=== PATIENT | female | born 1935 | race Caucasian/White ===

== ENCOUNTER 2021-04-07 20:32 | Emergency (ER) | payer MEDICARE, OTHER ==
[2021-04-07] MEDS ORDERED: Sodium Chloride 0.9% 1000 ML 1,000 ML IV STA (21:21)
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
[2021-04-07 21:59] LABS: Absolute Neutrophil Ct (ANC) 14.06 (1.4-6.9); BASOPHIL % 0.2 % (0.0-0.4); Basophil (Absolute #) 0.03 (0-0.4); Eosinophil % 0.1 % (0.00-5.0); Eosinophil (Absolute #) 0.01 (0-0.5); Hematocrit 40.8 % (35-47); Hemoglobin 13.1 gm/dl (12.0-16.0); Lymphocyte (Absolute #) 1.05 (1.0-4.6); Lymphocytes % 6.4 % (24.0-44.0); Mean Cell Volume 99.5 fl (78-100); Mean Corpuscular Hgb Concent. 32.1 g/dl (32-36); Monocyte (Absolute #) 1.28 (0.0-1.3); Monocytes % 7.8 % (0.0-12.0); Neutrophil % 85.5 % (36.0-66.0); Platelet Count 305 K/mm3 (150-450); Red Cell Distribution Width 14.6 % (11.5-14.0); White Blood Count 16.4 K/mm3 (4.0-10.5)
[2021-04-07 22:06] LABS: INR 3.42 (0.8-3.0); PROTIME 40.4 SECONDS (9.4-12.5)
[2021-04-07] MEDS ORDERED: Sodium Chloride 0.9% 1000 ML 1,000 ML ONE (22:07)
[2021-04-07 22:08] LABS: PTT 40.2 SECONDS (25.1-36.5)
[2021-04-07 22:39] LABS: ALBUMIN 3.8 g/dL (3.5-5.0); ANION GAP 8.9 MEQ/L (5-15); BILIRUBIN,TOTAL 0.4 mg/dL (0.2-1.3); Calcium 9.4 mg/dL (8.4-10.2); Creatinine 1 1.03 mg/dL (0.52-1.04); EST GLOMERULAR FILTRATION RATE 54.1 ML/MIN; Potassium 4.3 mmol/L (3.5-5.1); Total Protein 6.6 g/dL (6.3-8.2)
[2021-04-08 01:34] LABS: Appearance SLIGHTLY CLOUDY (CLEAR); Bilirubin NEGATIVE (NEGATIVE); Blood NEGATIVE Ery/ul (0-5); Epithelial Cells RARE /HPF (FEW); Glucose NEGATIVE (NEGATIVE); Ketones NEGATIVE (NEGATIVE); Leukocyte Esterase TRACE (NEGATIVE); Mucus SLIGHT /HPF (NEGATIVE); Nitrite NEGATIVE (NEGATIVE); Protein,Urine Dip NEGATIVE (Negative); Specific Gravity 1.017 (1.005-1.025); Urobilinogen NEGATIVE mg/dL (0-1)
[2021-04-08 01:42] LABS: Hematocrit 33.4 % (35-47); Hemoglobin 10.8 gm/dl (12.0-16.0)
[2021-04-08] MEDS ORDERED: Sodium Chloride 0.9% 1000 ML 1,000 ML IV STA (01:50)
[2021-04-08] MEDS ORDERED: Sodium Chloride 0.9% 1000 ML 1,000 ML ONE (01:54)
[2021-04-08] MEDS ORDERED: Vitamin K 10 MG/ML IM ONE (02:12)
[2021-04-08 02:13] LABS: ABO TYPING A; Antibody Screen NEGATIVE (NEGATIVE); RH TYPING POSITIVE
[2021-04-08] MEDS ORDERED: Vitamin K 10 MG/ML ONE (02:43)
[2021-04-08 03:22] VITALS: BP 163/71; PULSE 64; O2SAT 99
[2021-04-08 04:37] LABS: CROSS MATCH (PRBC) COMPATIBLE (COMPATIBLE)
--- NOTE | 2021-04-08 08:53 | XRAY ---
Exam: Two-view left hip including AP film of the pelvis from 04/07/2021. Comparison: None. Indication: Elderly female fell at 7 AM this morning; patient having pain and swelling of left hip; patient takes blood thinners and has large hematoma on left hip from fall; patient has been walking on it. Findings: AP film of the pelvis including both hips and AP and frog-leg lateral views of the left hip were obtained. I see no acute fracture or dislocation of the left hip. The hip joint spaces appears slightly narrowed, right greater than left. Some vascular calcification is seen within the iliac arteries and femoral arteries. Some calcified phleboliths are seen within the lower pelvis on each side of midline. Subtle soft tissue calcifications are seen adjacent to the superior lateral margin of the greater trochanter of each hip and may relate to hydroxyapatite deposition disease, or chronic bursitis. The pubic rings appear intact. I see no evidence of acute fracture within the pelvis. Moderate degenerative changes are seen within the visualized lower lumbar spine. The visualized bowel gas pattern is unremarkable. There is ill-defined increased soft tissue prominence located superior lateral and lateral to the left hip. Correlate clinically regarding left hip contusion/hematoma. Impression: 1. I note a relatively large area of ill-defined increased soft tissue attenuation superior lateral and lateral to the proximal left femur which may relate to soft tissue contusion/hematoma. No underlying acute fracture or dislocation of the left hip is seen. No fracture of the pelvis is seen as well. 2. Chronic degenerative changes and vascular calcification are seen.
--- NOTE | 2021-04-08 15:02 | XRAY ---
Exam: CT of the abdomen and pelvis with IV contrast from 04/08/2021. CTDI: 11.56 mGy Comparison: None. Indication: 85-year-old female with injury/trauma; injury date on 04/07/2021. Patient states lateral left hip is swollen and painful. Patient is on blood thinners; history of prior hysterectomy and cholecystectomy; clinical concern for active bleeding. Technique: Post-IV contrast axial images were obtained through the abdomen and pelvis during automated injection of 80 ML's of Isovue 370 contrast material. No oral contrast was given. Reconstructed coronal and sagittal images were created and reviewed. In addition, delayed axial images were obtained. Findings: The lung bases reveal minimal linear scarring/atelectasis at the left lung base. The heart size is slightly enlarged. No pleural effusion is seen. The liver is of unremarkable size and uniform attenuation. Surgical clips consistent with prior cholecystectomy are seen. There is some prominence of the extrahepatic bile ducts, likely due to the be due to patient's advanced age and prior cholecystectomy. The spleen appears relatively small. There is no splenic mass. No free intraperitoneal fluid is seen within either outer quadrant. The pancreas and adrenal glands appear unremarkable. Both kidneys function on delayed images. Some bilateral renal cortical cysts are seen, the largest on the left measuring 4.1 cm in diameter. No solid renal mass or hydronephrosis is seen. Atherosclerotic calcification is seen within the abdominal aorta, iliac arteries, and common femoral arteries. I see no evidence of aortic aneurysm or abnormal retroperitoneal lymphadenopathy. No free intraperitoneal air is seen. Small supraumbilical fat-containing hernia is seen. No ventral wall bowel containing hernia is seen. The bowel appears of unremarkable diameter. No wall thickening is seen. Some scattered small colonic diverticula are seen. There is no evidence of acute diverticulitis. The uterus is surgically absent. Urinary bladder is only mildly distended, but is otherwise unremarkable. No abnormal pelvic lymphadenopathy or free intraperitoneal fluid is seen. I note some stippled calcification at the upper left margin of the vaginal cuff. The pelvic sidewalls appear unremarkable. The skeleton reveals no acute fracture or aggressive bone lesion/bone destruction. There is a minimal rotary levoscoliosis centered at L1. Advanced facet osteoarthritic changes are seen within the mid and lower lumbar spine. Vertebral endplate spurring is evident as well. The soft tissues reveal a large, irregular soft tissue mass posterior lateral to the left hip measuring 13.7 cm in craniocaudal dimension and 11.6 cm in width on coronal image number 92 and about 6.3 cm in AP dimension on delay axial image #86. This soft tissue mass contains varying low attenuation and slightly hyperattenuated components within it. In addition, there is some vascular contrast extravasation at its lower anterior margin and lower central aspect consistent with active bleeding. Surrounding increased ill-defined soft tissue attenuation within the lower left flank, left buttock, and proximal left high is seen consistent with contusion. Impression: 1. 11.6 cm x 13.7 cm x 6.3 cm hematoma noted adjacent to the posterior lateral left hip, left buttock, and proximal left thigh with vascular contrast extravasation indicating active bleeding. 2. Surrounding the hematoma is a larger area of ill-defined lower left flank, left buttock, posterior lateral left hip, and proximal left thigh soft tissue contusion. 3. There is no evidence of traumatic visceral injury within the abdomen or pelvis. I see no evidence of acute skeletal fracture. Degenerative changes are evident. 4. Evidence of prior cholecystectomy and hysterectomy. 5. Mild diffuse colonic diverticulosis without evidence of diverticulitis. 6. Slight cardiomegaly, renal cortical cysts, and small fat-containing supraumbilical hernia are seen.
== END 2021-04-08 03:55 | disposition short-term general hospital (02) ==
LOC: ED 20:32
DX: S70.02XA Contusion of left hip, initial encounter (principal); R79.1 Abnormal coagulation profile; D72.829 Elevated white blood cell count, unspecified; E87.1 Hypo-osmolality and hyponatremia; R42 Dizziness and giddiness; M25.552 Pain in left hip; M25.522 Pain in left elbow; Z79.01 Long term (current) use of anticoagulants; I48.91 Unspecified atrial fibrillation; Z79.899 Other long term (current) drug therapy; I10 Essential (primary) hypertension; E78.00 Pure hypercholesterolemia, unspecified
CPT/HCPCS: 36415; 73502; 74177; 80053; 81001; 84484; 85014; 85018; 85025; 85610; 85730; 86850; 86900; 86901; 86922; 93005; 93041; 94760; 96360; 96372; 99285; U0003; J3430

== ENCOUNTER 2023-01-19 17:04 | Observation (INO) | payer MEDICARE, OTHER ==
[2023-01-19 17:32] LABS: Absolute Neutrophil Ct (ANC) 6.79 x10^3/uL (1.4-6.9); BASOPHIL % 0.7 % (0.0-0.4); Basophil (Absolute #) 0.07 x10^3/uL (0-0.4); Eosinophil % 1.5 % (0.00-5.0); Eosinophil (Absolute #) 0.15 x10^3/uL (0-0.5); Hematocrit 43.5 % (35-47); Hemoglobin 14.5 g/dL (12.0-16.0); IMMATURE GRAN # 0.02 x10^3u/L (0.00-0.03); IMMATURE GRAN % 0.2 % (0.00-0.4); Lymphocyte (Absolute #) 2.08 x10^3/uL (1.0-4.6); Lymphocytes % 21.1 % (24.0-44.0); Mean Cell Volume 94.8 fL (78-100); Mean Corpuscular Hemoglobin 31.6 pg (26-32); Mean Corpuscular Hgb Concent. 33.3 g/dL (32-36); Mean Platelet Volume 9.4 fL (7.5-11.0); Monocyte (Absolute #) 0.75 x10^3/uL (0.0-1.3); Monocytes % 7.6 % (0.0-12.0); Neutrophil % 68.9 % (36.0-66.0); Platelet Count 367 x10^3/uL (150-450); Red Blood Count 4.59 x10^6/uL (4.1-5.4); Red Cell Distribution Width 13.7 % (11.5-14.0); White Blood Count 9.9 x10^3/uL (4.0-10.5)
[2023-01-19 17:44] LABS: ALBUMIN 4.3 g/dL (3.5-5.0); BILIRUBIN,TOTAL 0.6 mg/dL (0.2-1.3); Calcium 9.4 mg/dL (8.4-10.2); Creatinine 1 0.96 mg/dL (0.52-1.04); EST GLOMERULAR FILTRATION RATE 58.4 ML/MIN; Potassium 3.7 mmol/L (3.5-5.1); Total Protein 7.9 g/dL (6.3-8.2)
[2023-01-19] MEDS ORDERED: BABY ASPIRIN 81 MG CHEW PO ONE (17:56)
[2023-01-19] MEDS ORDERED: BABY ASPIRIN 81 MG CHEW ONE (18:05)
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
[2023-01-19 18:07] LABS: INFLUENZA A NEGATIVE (NEGATIVE); INFLUENZA B NEGATIVE (NEGATIVE); RESPIRATORY SYNCTIAL VIRUS NEGATIVE (NEGATIVE); SARS-CoV-2 Xpert Express NEGATIVE (NEGATIVE)
[2023-01-19 18:29] LABS: INR 2.25 (0.8-3.0); PROTIME 23.1 SECONDS (9.4-12.5); PTT 39.9 SECONDS (25.1-36.5)
[2023-01-19] MEDS ORDERED: MILK OF MAGNESIA 30 ML PO PRN (19:52)
[2023-01-19] MEDS ORDERED: MAALOX ES 30 ML UNIT DOSE PO PRN (19:52)
[2023-01-19] MEDS ORDERED: Senokot-S Tablet PO PRN (19:52)
[2023-01-19] MEDS ORDERED: TYLENOL 325 MG PO PRN (19:52)
[2023-01-19] MEDS ORDERED: Zofran 4 MG/2 ML VIAL IV PRN (19:52)
[2023-01-19] MEDS ORDERED: CLONIDINE 0.1 MG TABLET PO ONE (22:28)
[2023-01-19] MEDS ORDERED: Zestril 20 MG PO ONE (22:29)
[2023-01-19] MEDS ORDERED: Ativan 0.5 MG PO ONE (22:29)
[2023-01-20 05:34] LABS: Risk Ratio 3.2
--- NOTE | 2023-01-20 08:41 | XRAY ---
Indication: Chest pain. Comparison: October 22, 2021 Portable apical lordotic chest demonstrates new minimal left base discoid atelectasis/scarring. Remaining heart and lungs unremarkable. Bony thorax intact again with osteopenia, degenerative changes, minimal double curvature scoliosis, and numerous left neck/left shoulder metallic shrapnel. Impression: Nonacute chest with chronic features.
[2023-01-20] MEDS ORDERED: Sodium Chloride 0.9% 250 ML 250 ML IV SCH (09:15)
[2023-01-20] MEDS ORDERED: Ativan 0.5 MG PO PRN (10:25)
[2023-01-20] MEDS ORDERED: [UNRECOGNIZED DRUG - OTHER] TP PRN (10:25)
[2023-01-20] MEDS ORDERED: BENTYL 20 MG PO PRN (10:25)
[2023-01-20] MEDS ORDERED: CLONIDINE 0.1 MG TABLET PO PRN (10:25)
[2023-01-20] MEDS ORDERED: NON-FORMULARY ITEM (Warfarin Sodium [Warfarin Sodium] 2.5 MG Tablet) PO SCH (10:30)
[2023-01-20] MEDS ORDERED: TYLENOL 325 MG PO PRN (10:30)
[2023-01-20] MEDS ORDERED: FISH OIL 1,000 MG CAPSULE PO SCH (11:00)
[2023-01-20] MEDS ORDERED: Zestril 20 MG PO SCH ×3 (11:00→22:00)
[2023-01-20] MEDS ORDERED: hydroDIURIL 25 MG PO SCH (11:00)
[2023-01-20] MEDS ORDERED: THERAGRAN MULTIVITAMIN PO SCH (11:00)
[2023-01-20] MEDS ORDERED: Aldactone 25 MG PO SCH (11:00)
[2023-01-20] MEDS ORDERED: MEDICATION INTERVENTION MC SCH ×3 (11:00)
[2023-01-20] MEDS ORDERED: Ocuvite Tablet PO SCH (11:00)
--- NOTE | 2023-01-20 13:34 | XRAY ---
Indication: Chest pain. Nonacute chest one day earlier. Conventional contrast enhanced CTA chest performed using 80 cc Isovue 370 contrast. 2-D sagittal and coronal reformatted images obtained. Additional 3-D reformatted images obtained using a separate workstation. Comparison: None Thoracic aorta and visualized abdominal aorta is minimally atherosclerotic without aneurysm/dissection. Widely patent branch right brachiocephalic, left common carotid, and left subclavian arteries with very minimal calcifications in the brachiocephalic and left subclavian arteries. Heart is not enlarged. Tiny right hilar calcified nodes. No pathologic mediastinal/hilar lymphadenopathy. Small hiatal hernia. Lungs are inflated with minimal bibasilar fibrosis/scarring. No suspicious pulmonary mass/nodule, infiltrate, or effusion. Bony thorax intact with mild/moderate degenerative changes throughout the thoracolumbar spine and both shoulders. Left shoulder demonstrates numerous metallic sapp shots bruising beam artifact. Limited upper abdomen demonstrates at least 2 left renal cysts, largest 3.3 cm. Right kidney demonstrates 2 small 5-6 mm cysts. Impression: 1. Minimal arteriosclerotic thoracic aorta, right brachiocephalic, and left subclavian arteries. Remaining CTA chest with contrast exam is normal. 2. Incidental small hiatal hernia, numerous left shoulder metallic sapp shots, chronic bony findings, bilateral renal cysts, and old granulomatous disease.
--- NOTE | 2023-01-20 13:44 | XRAY ---
Indication: Chest pain and lightheaded. Conventional contrast enhanced CTA neck performed using 80 cc Isovue 370 contrast. 2-D sagittal and coronal reformatted images obtained. Comparison: None CTA chest reported separately. Numerous left shoulder metallic sapp shots produces beam artifact limiting exam. Left and right carotid bulbs demonstrates faint minimal eccentric arteriosclerotic calcifications. Remaining common carotid, internal carotid, and external carotid arteries are normal in CTA appearance bilaterally. Vertebral arteries are bilaterally patent with the right slightly larger in caliber. Thyroid gland grossly enhances homogeneously. Visualized gross pathologic cervical/supraclavicular lymphadenopathy. Supra and infraglottic airway widely patent. Visualized basal brain are unremarkable. Visualized osseous structures intact with osteopenia and mild/moderate multilevel cervical degenerative changes greatest at C6-C7 level. Patient is edentulous. Impression: 1. Beam artifact from left shoulder metallic aspp shots. 2. Minimal faint arteriosclerotic calcifications both carotid bulbs without critical stenosis/obstruction. 3. Remaining CTA neck with contrast exam is normal. 4. Incidental osteopenia and multilevel cervical degenerative changes.
[2023-01-20 13:50] VITALS: BP 132/61; PULSE 50; O2SAT 93
[2023-01-20] MEDS ORDERED: JANTOVEN PO SCH (18:00)
[2023-01-20] MEDS ORDERED: LUTEIN PO SCH (22:00)
[2023-01-20] MEDS ORDERED: CUPERIC PO SCH (22:00)
[2023-01-20] MEDS ORDERED: Toprol Xl 100 MG PO SCH (22:00)
[2023-01-20] MEDS ORDERED: VIT C PO SCH (22:00)
[2023-01-20] MEDS ORDERED: [UNRECOGNIZED DRUG - OTHER] PO SCH (22:00)
[2023-01-20] MEDS ORDERED: ZINC PO SCH (22:00)
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
[2023-01-21] MEDS ORDERED: NON-FORMULARY ITEM (Lisinopril/Hydrochlorothiazide [Lisinopril-Hctz 20-12.5 Mg Tab] 1 EACH PO SCH (10:00)
[2023-01-21] MEDS ORDERED: NON-FORMULARY ITEM (Multivitamin [Multivitamin] 1 EACH Tablet) PO SCH (10:00)
[2023-01-21] MEDS ORDERED: NON-FORMULARY ITEM (Ubidecarenone [Co Q-10] 100 MG Capsule) PO SCH (10:00)
[2023-01-21] MEDS ORDERED: GARLIC 100 MG PO SCH (10:00)
[2023-01-21] MEDS ORDERED: JANTOVEN PO SCH (18:00)
== END 2023-01-20 15:25 | disposition home or self-care (01) ==
LOC: ED 17:04 → MED SURG 19:38
PROVIDERS: ADMIT Internal Medicine; ATTEND Family Medicine
DX: R07.9 Chest pain, unspecified (principal); I48.91 Unspecified atrial fibrillation; I10 Essential (primary) hypertension; E78.5 Hyperlipidemia, unspecified; Z79.899 Other long term (current) drug therapy; Z20.828 Contact with and (suspected) exposure to other viral communicable diseases; Z79.01 Long term (current) use of anticoagulants
CPT/HCPCS: 0241U; 36000; 36415; 70498; 71045; 71275; 80053; 80061; 83721; 84484; 85025; 85610; 85730; 93005; 93041; 94760; 99285; 93268; A9270-GY; G0378

== ENCOUNTER 2023-01-23 11:44 | Emergency (ER) | payer MEDICARE, OTHER ==
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
[2023-01-23 12:48] LABS: Absolute Neutrophil Ct (ANC) 8.03 x10^3/uL (1.4-6.9); BASOPHIL % 0.7 % (0.0-0.4); Basophil (Absolute #) 0.07 x10^3/uL (0-0.4); Eosinophil % 0.8 % (0.00-5.0); Eosinophil (Absolute #) 0.08 x10^3/uL (0-0.5); Hematocrit 40.7 % (35-47); Hemoglobin 13.7 g/dL (12.0-16.0); IMMATURE GRAN # 0.03 x10^3u/L (0.00-0.03); IMMATURE GRAN % 0.3 % (0.00-0.4); Lymphocyte (Absolute #) 1.09 x10^3/uL (1.0-4.6); Lymphocytes % 10.8 % (24.0-44.0); Mean Corpuscular Hemoglobin 31.6 pg (26-32); Mean Corpuscular Hgb Concent. 33.7 g/dL (32-36); Mean Platelet Volume 9.4 fL (7.5-11.0); Monocyte (Absolute #) 0.76 x10^3/uL (0.0-1.3); Monocytes % 7.6 % (0.0-12.0); Neutrophil % 79.8 % (36.0-66.0); Platelet Count 320 x10^3/uL (150-450); Red Blood Count 4.33 x10^6/uL (4.1-5.4); Red Cell Distribution Width 13.5 % (11.5-14.0); White Blood Count 10.1 x10^3/uL (4.0-10.5)
[2023-01-23 13:02] LABS: ANION GAP 10.7 MEQ/L (5-15); BILIRUBIN,TOTAL 0.5 mg/dL (0.2-1.3); Creatinine 1 1.04 mg/dL (0.52-1.04); EST GLOMERULAR FILTRATION RATE 53.3 ML/MIN; Potassium 4.4 mmol/L (3.5-5.1); Total Protein 7.1 g/dL (6.3-8.2)
[2023-01-23 13:02] LABS: INR 1.42 (0.8-3.0); PROTIME 15.1 SECONDS (9.4-12.5)
[2023-01-23] MEDS ORDERED: Sodium Chloride 0.9% 1000 ML 1,000 ML ONE (13:40)
[2023-01-23] MEDS ORDERED: Sodium Chloride 0.9% 1000 ML 1,000 ML IV SCH (13:45)
[2023-01-23] MEDS ORDERED: Zofran 4 MG/2 ML VIAL IV ONE (14:06)
[2023-01-23] MEDS ORDERED: Zofran 4 MG/2 ML VIAL ONE (14:06)
--- NOTE | 2023-01-23 14:07 | XRAY ---
CLINICAL HISTORY:Syncope. COMPARISON:None; TECHNIQUES:Axial non-contrast CT scan of the Brain was performed from the skull base up to the vertex in bony and soft tissue windows. Coronal and sagittal reconstructions done. Total DLP-948.95; CTDI-53.92 mGycm; FINDINGS: Periventricular white matter hypodensities in keeping with chronic microvascular ischemic changes. Senile atrophic changes. No acute territorial infarct, bleed, mass effect, or hydrocephalus. No midline shift. There is no mass lesion in either CP angle. There is no space-occupying lesion. Posterior fossa structures appear normal. The IACs are unremarkable. The skull bones appear normal. Visualized paranasal sinuses appear clear. IMPRESSION: 1. No detectable acute intracranial hemorrhage or established acute territory infarction. 2. Age-related brain involutional changes. Senile atrophic changes. 3. Periventricular white matter hypodensities in keeping with chronic microvascular ischemic changes. 4. MRI brain study is recommended if clinically suggestive. Electronically Signed by: Tali Verduzco MD. ( 01/23/2023 12:57:39 [facility] [employer])
[2023-01-23 14:26] LABS: Appearance Clear (Clear); Bacteria None Seen /HPF (None Seen); Bilirubin Negative (Negative); Blood Negative (Negative); Epithelial Cells Rare /HPF (None Seen); Glucose, Urine Negative (Negative); Ketones Trace (Negative); Leukocyte Esterase Negative (Negative); Nitrite Negative (Negative); Ph 6.5 (4.6-8.0); Protein,Urine Dip Trace (Negative); Urobilinogen 0.2 mg/dL (0.2); WBC 0-2 /HPF (0-5)
[2023-01-23 14:27] LABS: ADD URINE CULTURE? YES (NO)
--- NOTE | 2023-01-23 14:39 | XRAY ---
CLINICAL HISTORY:Pain. COMPARISON:Prior CT study dated 04/07/2021; TECHNIQUES:Contiguous, multislice, nonenhanced CT scan of the abdomen and pelvis in the axial plane with multiplanar reconstructions. Total DLP-565.92; CTDI-11.05 mGy; FINDINGS: Limited organ parenchymal evaluation within the limitations of noncontrast study. Normal size liver showing homogeneous attenuation with no obvious focal mass lesion within the limitations of noncontrast study. Gallbladder is surgically removed as evidenced by surgical clips in the gallbladder fossa. Dilated distal portion of CBD likely due to cholecystectomy. Pancreas shows calcification in the body measuring about 0.6 cm mostly secondary to chronic pancreatic insult. Spleen appear unremarkable. No adrenal mass. Bilateral renal cysts, cysts in the right kidney measures about 2X 2 cm. 1.2X 0.8 cm and 0.9X 1 cm. Cysts in the left kidney measures about 3X 3 cm, 4.8X 3.8 cm and 2.7X 2.3 cm. No calculus or hydronephrosis in either kidneys. Fat-containing umbilical hernia. No ascites. No para-aortic lymphadenopathy. Atherosclerotic calcification of the abdominal aorta and iliac vessels. Noncomplicated colonic diverticulosis involving sigmoid colon. No CT evidence of diverticulitis. Partially filled urinary bladder, appear free from intraluminal stones, obvious masses or diverticular outpouching. Uterus is not visualized, likely surgically removed. No adnexal mass. There is irregular calcified density attenuation seen posterior to the urinary bladder. Pelvic phleboliths noted. There is irregular hyperdense attenuation visualized posterior lateral aspect of the left hip in the subcutaneous fat region measuring approximately 4.9 X 2 cm., shows interval regression in size when compared with prior study. Cardiac size is upper limit of normal. Multilevel spondylodegenerative changes in the visualized spine showing degenerative disc disease at multiple levels with vacuum phenomenon. Facetal arthritic changes noted at multiple levels. Osteoporotic bones. Visualized sections of lower chest shows atelectatic bands in left lower lobe. No focal mass or consolidation. IMPRESSION: 1. Limited organ parenchymal evaluation within the limitations of non-contrast study. 2. Status postcholecystectomy. 3. Bilateral renal cortical cysts, largest cyst right kidney measures about 2X 2 cm and 4.8X 3.8 cm cyst in left kidney, stable Fat-containing umbilical hernia, stable. 4. Noncomplicated colonic diverticulosis involving sigmoid colon without evidence of diverticulitis, stable appearance when compared with prior study. 5. Irregular hyperdense attenuation in the visualized posterolateral aspect of the left hip in the subcutaneous fat region measuring approximately 4.9X 2 cm., shows interval regression in size when compared with prior study. 6. Rest of the findings as detailed above. Electronically Signed by: Tali Verduzco MD. ( 01/23/2023 13:28:02 CLIENT CARE REPRESENTATIVE)
[2023-01-23] MEDS ORDERED: ROCEPHIN 1 Gm-D5w 50 ml Bag** 1 G/50 ML IVPB IV STA (14:53)
[2023-01-23] MEDS ORDERED: ROCEPHIN 1 Gm-D5w 50 ml Bag** 1 G/50 ML IVPB IV ONE (14:54)
[2023-01-23 15:20] VITALS: BP 124/65; PULSE 52; O2SAT 95
--- NOTE | 2023-01-23 19:25 | XRAY ---
Indication: Chest pain. Comparison: January 19, 2023 Portable chest unchanged again demonstrating minimal left base discoid atelectasis/scarring. Remaining heart and lungs normal. Bony thorax intact again with osteopenia, degenerative changes, scoliosis, and numerous left neck/left shoulder metallic shrapnel. Impression: Continued nonacute chest with chronic features.
== END 2023-01-23 15:39 | disposition home or self-care (01) ==
LOC: ED 11:44
DX: N30.00 Acute cystitis without hematuria (principal); E86.9 Volume depletion, unspecified; R55 Syncope and collapse; R11.0 Nausea; E78.5 Hyperlipidemia, unspecified; I10 Essential (primary) hypertension; Z79.899 Other long term (current) drug therapy
CPT/HCPCS: 36000; 36415; 70450; 71045; 74176; 80053; 81001; 82150; 83690; 84484; 85025; 85610; 87086; 93005; 93041; 96360; 96365; 96374; 99284; J0696; J2405

== ENCOUNTER 2025-04-30 14:29 | Observation (INO) | payer MEDICARE, OTHER ==
--- NOTE | 2025-04-30 15:04 | XRAY ---
Indication: Pain. Comparison: January 23, 2023 Portable chest less inflated with new mild bibasilar infiltrates versus atelectasis. Heart not enlarged. Bony thorax intact again with osteopenia, degenerative changes, scoliosis, and numerous left neck/left shoulder metallic shrapnel.
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
[2025-04-30 15:28] LABS: BASOPHIL % 0.9 % (0.1-1.2); Basophil (Absolute #) 0.08 x10^3/uL (0.01-0.08); Eosinophil (Absolute #) 0.11 x10^3/uL (0.04-0.36); Hematocrit 36.2 % (34.1-44.9); Hemoglobin 12.5 g/dL (11.2-15.7); IMMATURE GRAN # 0.04 x10^3u/L (0.001-0.031); IMMATURE GRAN % 0.5 % (0.001-0.429); Lymphocyte (Absolute #) 1.32 x10^3/uL (1.18-3.74); Mean Corpuscular Hemoglobin 33.2 pg (25.6-32.2); Mean Corpuscular Hgb Concent. 34.5 g/dL (32.2-35.5); Monocyte (Absolute #) 0.74 x10^3/uL (0.24-0.86); NUCLEATED RBC # 0.00 x10^3u/L (0.00-0.012); NUCLEATED RBC % 0.0 % (0.00-0.2); Platelet Count 372 x10^3/uL (182-369); Red Blood Count 3.77 x10^6/uL (3.93-5.22); White Blood Count 8.8 x10^3/uL (3.98-10.04)
[2025-04-30] MEDS ORDERED: BABY ASPIRIN 81 MG CHEW ONE (15:44)
[2025-04-30] MEDS ORDERED: NITRO-BID 2% UD PACKETS ONE (15:44)
[2025-04-30] MEDS: NITRO-BID 2% UD PACKETS TOP ONE (15:46)
[2025-04-30] MEDS: BABY ASPIRIN 81 MG CHEW PO ONE (15:49)
[2025-04-30 15:54] LABS: Calcium 9.5 mg/dL (8.4-10.2); Carbon Dioxide 24.0 mmol/L (22-30); Creatinine 1 1.37 mg/dL (0.52-1.04); EST GLOMERULAR FILTRATION RATE 36.9 ML/MIN; Glucose 94.0 mg/dL (74-106); NT PRO BNPII 1150.0 pg/mL (<300); Potassium 5.1 mmol/L (3.5-5.1); SGOT/AST 45.0 U/L (14-36); SGPT/ALT 17.0 U/L (0-35); Total Protein 7.2 g/dL (6.3-8.2)
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
[2025-04-30] MEDS ORDERED: BENTYL 20 MG PO PRN (17:33)
[2025-04-30] MEDS ORDERED: [UNRECOGNIZED DRUG - OTHER] TP PRN (17:33)
[2025-04-30] MEDS ORDERED: ULTRAM 50 MG PO PRN (17:33)
[2025-04-30] MEDS ORDERED: NON-FORMULARY ITEM (Acetaminophen [Tylenol Arthritis] 650 MG Tablet.Er) PO PRN (17:33)
[2025-04-30] MEDS ORDERED: PHARMACY RENAL DOSING MC ONE (17:35)
[2025-04-30] MEDS ORDERED: Narcan 0.4 MG/ML IV PRN (17:36)
[2025-04-30 17:47] LABS: INR 1.73 (0.8-3.0); PROTIME 18.2 SECONDS (9.4-12.5)
[2025-04-30] MEDS: Coumadin 2 MG PO SCH (17:55)
[2025-04-30] MEDS: Coumadin 3 MG PO ONE (18:33)
[2025-04-30 19:35] LABS: Glucose, Urine Negative (Negative); Protein,Urine Dip Negative (Negative); WBC 0-2 /HPF (0-5)
[2025-04-30] MEDS ORDERED: TYLENOL 325 MG PO PRN (20:40)
[2025-04-30] MEDS: xanAX 0.25 MG PO PRN (21:35)
[2025-04-30] MEDS: Mirapex 0.5 MG Tablet PO SCH (21:35)
[2025-04-30] MEDS: Zestril 20 MG PO SCH (21:36)
[2025-04-30] MEDS: Ranexa 500 MG PO SCH (21:36)
[2025-04-30] MEDS: Ocuvite Tablet PO SCH (21:36)
[2025-04-30] MEDS ORDERED: CUPERIC PO SCH (22:00)
[2025-04-30] MEDS ORDERED: NON-FORMULARY ITEM (Pramipexole Di-Hcl [Pramipexole Dihydrochloride] 1 MG Tablet) PO SCH (22:00)
[2025-04-30] MEDS ORDERED: [UNRECOGNIZED DRUG - OTHER] PO SCH (22:00)
[2025-04-30] MEDS ORDERED: VIT C PO SCH (22:00)
[2025-04-30] MEDS ORDERED: ZINC PO SCH (22:00)
[2025-04-30] MEDS ORDERED: LUTEIN PO SCH (22:00)
[2025-05-01 05:41] LABS: Hematocrit 34.3 % (34.1-44.9); Hemoglobin 11.6 g/dL (11.2-15.7); Mean Corpuscular Hemoglobin 32.5 pg (25.6-32.2); Mean Corpuscular Hgb Concent. 33.8 g/dL (32.2-35.5); Platelet Count 320 x10^3/uL (182-369); Red Blood Count 3.57 x10^6/uL (3.93-5.22); White Blood Count 8.5 x10^3/uL (3.98-10.04)
[2025-05-01 06:12] LABS: Calcium 9.1 mg/dL (8.4-10.2); Carbon Dioxide 24.0 mmol/L (22-30); Creatinine 1 1.36 mg/dL (0.52-1.04); EST GLOMERULAR FILTRATION RATE 37.2 ML/MIN; Glucose 84.0 mg/dL (74-106); Potassium 4.1 mmol/L (3.5-5.1); SGOT/AST 34.0 U/L (14-36); SGPT/ALT 16.0 U/L (0-35); Total Protein 6.7 g/dL (6.3-8.2)
[2025-05-01 06:15] LABS: INR 1.86 (0.8-3.0); PROTIME 19.5 SECONDS (9.4-12.5)
[2025-05-01] MEDS ORDERED: MEDICATION INTERVENTION MC SCH ×3 (07:15)
[2025-05-01 07:35] VITALS: RESP 16
[2025-05-01] MEDS: Toprol Xl 50 MG PO SCH (09:53)
[2025-05-01] MEDS: THERAGRAN MULTIVITAMIN PO SCH (09:53)
[2025-05-01] MEDS: FISH OIL 1,000 MG CAPSULE PO SCH (09:54)
[2025-05-01] MEDS: Acidophilus TABLET PO SCH (09:54)
[2025-05-01] MEDS: Aldactone 25 MG PO SCH (09:54)
[2025-05-01] MEDS ORDERED: Toprol Xl 100 MG PO SCH (10:00)
[2025-05-01] MEDS ORDERED: GARLIC 100 MG PO SCH (10:00)
[2025-05-01] MEDS ORDERED: NON-FORMULARY ITEM (Multivitamin [Multivitamin] 1 EACH Tablet) PO SCH (10:00)
[2025-05-01] MEDS ORDERED: NON-FORMULARY ITEM (Ubidecarenone [Co Q-10] 100 MG Capsule) PO SCH (10:00)
--- NOTE | 2025-05-01 10:27 | PCM.DS ---
Discharge Summary Date of Admission: 04/30/25 16:50 Date of Discharge: 05/01/25 Admitting Physician: SHIVAM PACHECO MD Consults: Consults on Case 05/01/25 10:02 Consult Podiatry ROUTINE Primary Care Provider: SHAWNA CRUZ Allergies Allergies No Known Drug Allergies Allergy (Verified 04/30/25 16:54) Hospital Summary - Hospital Course Hospital Course: 04/30/25 is a 89-year-old female with a past medical history of atrial fibrillation on Coumadin, hypertension, hyperlipidemia, chronic kidney disease, osteoarthritis, degenerative joint disease, diverticulitis, anxiety, and migraines presented with left-sided chest pain that began in the middle of the night. She reported that the symptoms lasted for approximately an hour and a half and resolved after she laid in bed. At the time of evaluation, she denied any ongoing chest pain. She also denied shortness of breath, and her oxygen saturation was within normal limits. On examination, her lungs were clear to auscultation with no signs of tachypnea. A chest X-ray showed new mild bibasilar infiltrates versus atelectasis, and procalcitonin is pending. The patient additionally reported ongoing diarrhea for the past three weeks, which began after taking an antibiotic prescribed for a left lower extremity wound sustained after hitting her leg in the shower. She tried Pepto-Bismol once without symptom relief. Laboratory findings were significant for chronic kidney disease and hyponatremia. She does not currently follow with a network support administrator and reports that she sees Dr. Cruz for her medical care. Overall, the patient appeared stable and without signs of respiratory distress. 05/01/25 Pt resting in bed, she wants to d/c home today. She has had no diarrhea overnight, stool sample pending. CP has resolved since admission and none since.Trops x3 negative. Hyponatremia improved, Na+ 130. Pt will need nephrology consult OP and appointment made. Pt has a hematoma of LLE with wound. VD of LLE and podiatry consult ordered for further eval. Dr. Pierce sent in OP antibiotics and wrapped LLE. He is ok with d/c home today. Pt to f/u OP with cardiology. - Vitals & Intake/Output Vital Signs: Vital Signs Temperature 97.8 F 05/01/25 07:34 Pulse Rate 54 L 05/01/25 07:34 Respiratory Rate 16 05/01/25 07:34 Blood Pressure 103/56 05/01/25 07:34 O2 Sat by Pulse Oximetry 95 05/01/25 07:34 Intake & Output: Intake & Output 04/28/25 04/29/25 04/30/25 05/01/25 11:59 11:59 11:59 11:59 Intake Total 1397 Output Total 1050 Balance 347 Weight 82.2 kg - Lab Result Diagrams: 05/01/25 05:00 05/01/25 05:00 Lab Results-Last 24 Hrs: Lab Results-Last 24 Hours 04/30/25 04/30/25 04/30/25 Range/Units 14:29 15:15 15:27 WBC 8.8 (3.98-10.04) x10^3/uL RBC 3.77 L (3.93-5.22) x10^6/uL Hgb 12.5 (11.2-15.7) g/dL Hct 36.2 (34.1-44.9) % MCV 96.0 H (79.4-94.8) fL MCH 33.2 H (25.6-32.2) pg MCHC 34.5 (32.2-35.5) g/dL RDW 13.2 (11.7-14.4) % Plt Count 372 H (182-369) x10^3/uL MPV 9.3 L (9.4-12.3) fL Gran % 74.1 H (34.0-71.1) % Immature Gran % (Auto) 0.5 H (0.001-0.429) % Nucleat RBC Rel Count 0.0 (0.00-0.2) % Eos # (Auto) 0.11 (0.04-0.36) x10^3/uL Immature Gran # (Auto) 0.04 H (0.001-0.031) x10^3u/L Absolute Lymphs (auto) 1.32 (1.18-3.74) x10^3/uL Absolute Monos (auto) 0.74 (0.24-0.86) x10^3/uL Absolute Nucleated RBC 0.00 (0.00-0.012) x10^3u/L Lymphocytes % 14.9 L (19.3-51.7) % Monocytes % 8.4 (4.7-12.5) % Eosinophils % 1.2 (0.7-5.8) % Basophils % 0.9 (0.1-1.2) % Absolute Granulocytes 6.55 H (1.56-6.13) x10^3/uL Basophils # 0.08 (0.01-0.08) x10^3/uL PT (9.4-12.5) SECONDS INR (0.8-3.0) Sodium (135-145) mmol/L Potassium (3.5-5.1) mmol/L Chloride (98-107) mmol/L Carbon Dioxide (22-30) mmol/L Anion Gap (5-15) MEQ/L BUN (7-17) mg/dL Creatinine (0.52-1.04) mg/dL Estimated GFR ML/MIN Glucose (74-106) mg/dL Calcium (8.4-10.2) mg/dL Total Bilirubin (0.2-1.3) mg/dL AST (14-36) U/L ALT (0-35) U/L Alkaline Phosphatase (38-126) U/L Troponin I (0.000-0.033) ng/mL NT-Pro-B Natriuret Pep (<300) pg/mL Serum Total Protein (6.3-8.2) g/dL Albumin (3.5-5.0) g/dL Procalcitonin 0.049 (0.030-0.080) ng/mL TSH 3rd Generation (0.470-4.680) mIU/L Urine Color Yellow (Yellow) Urine Appearance Clear (Clear) Urine pH 6.5 (4.6-8.0) Ur Specific [place] 1.020 (1.005-1.030) Urine Protein Negative (Negative) Urine Glucose (UA) Negative (Negative) mg/dL Urine Ketones 15 A (Negative) Urine Blood Negative (Negative) Urine Nitrite Negative (Negative) Urine Bilirubin Negative (Negative) Urine Urobilinogen 0.2 (0.2) mg/dL Ur Leukocyte Esterase Small A (Negative) U Hyaline Cast (Auto) NONE SEEN (0-2) /LPF Urine Microscopic RBC 3-5 (0-5) /HPF Urine Microscopic WBC 0-2 (0-5) /HPF Ur Epithelial Cells None Seen (None Seen) /HPF Urine Bacteria None Seen (None Seen) /HPF Urine Culture Reflexed NO (NO) 04/30/25 04/30/25 04/30/25 Range/Units 15:27 15:27 15:27 WBC (3.98-10.04) x10^3/uL RBC (3.93-5.22) x10^6/uL Hgb (11.2-15.7) g/dL Hct (34.1-44.9) % MCV (79.4-94.8) fL MCH (25.6-32.2) pg MCHC (32.2-35.5) g/dL RDW (11.7-14.4) % Plt Count (182-369) x10^3/uL MPV (9.4-12.3) fL Gran % (34.0-71.1) % Immature Gran % (Auto) (0.001-0.429) % Nucleat RBC Rel Count (0.00-0.2) % Eos # (Auto) (0.04-0.36) x10^3/uL Immature Gran # (Auto) (0.001-0.031) x10^3u/L Absolute Lymphs (auto) (1.18-3.74) x10^3/uL Absolute Monos (auto) (0.24-0.86) x10^3/uL Absolute Nucleated RBC (0.00-0.012) x10^3u/L Lymphocytes % (19.3-51.7) % Monocytes % (4.7-12.5) % Eosinophils % (0.7-5.8) % Basophils % (0.1-1.2) % Absolute Granulocytes (1.56-6.13) x10^3/uL Basophils # (0.01-0.08) x10^3/uL PT 18.2 H (9.4-12.5) SECONDS INR 1.73 (0.8-3.0) Sodium 127 L (135-145) mmol/L Potassium 5.1 (3.5-5.1) mmol/L Chloride 95 L (98-107) mmol/L Carbon Dioxide 24 (22-30) mmol/L Anion Gap 13.4 (5-15) MEQ/L BUN 32 H (7-17) mg/dL Creatinine 1.37 H (0.52-1.04) mg/dL Estimated GFR 36.9 ML/MIN Glucose 94 (74-106) mg/dL Calcium 9.5 (8.4-10.2) mg/dL Total Bilirubin 0.60 (0.2-1.3) mg/dL AST 45 H (14-36) U/L ALT 17 (0-35) U/L Alkaline Phosphatase 67 (38-126) U/L Troponin I < 0.012 (0.000-0.033) ng/mL NT-Pro-B Natriuret Pep 1150 (<300) pg/mL Serum Total Protein 7.2 (6.3-8.2) g/dL Albumin 4.2 (3.5-5.0) g/dL Procalcitonin (0.030-0.080) ng/mL TSH 3rd Generation (0.470-4.680) mIU/L Urine Color (Yellow) Urine Appearance (Clear) Urine pH (4.6-8.0) Ur Specific [place] (1.005-1.030) Urine Protein (Negative) Urine Glucose (UA) (Negative) mg/dL Urine Ketones (Negative) Urine Blood (Negative) Urine Nitrite (Negative) Urine Bilirubin (Negative) Urine Urobilinogen (0.2) mg/dL Ur Leukocyte Esterase (Negative) U Hyaline Cast (Auto) (0-2) /LPF Urine Microscopic RBC (0-5) /HPF Urine Microscopic WBC (0-5) /HPF Ur Epithelial Cells (None Seen) /HPF Urine Bacteria (None Seen) /HPF Urine Culture Reflexed (NO) 04/30/25 04/30/25 04/30/25 Range/Units 19:45 21:35 21:35 WBC (3.98-10.04) x10^3/uL RBC (3.93-5.22) x10^6/uL Hgb (11.2-15.7) g/dL Hct (34.1-44.9) % MCV (79.4-94.8) fL MCH (25.6-32.2) pg MCHC (32.2-35.5) g/dL RDW (11.7-14.4) % Plt Count (182-369) x10^3/uL MPV (9.4-12.3) fL Gran % (34.0-71.1) % Immature Gran % (Auto) (0.001-0.429) % Nucleat RBC Rel Count (0.00-0.2) % Eos # (Auto) (0.04-0.36) x10^3/uL Immature Gran # (Auto) (0.001-0.031) x10^3u/L Absolute Lymphs (auto) (1.18-3.74) x10^3/uL Absolute Monos (auto) (0.24-0.86) x10^3/uL Absolute Nucleated RBC (0.00-0.012) x10^3u/L Lymphocytes % (19.3-51.7) % Monocytes % (4.7-12.5) % Eosinophils % (0.7-5.8) % Basophils % (0.1-1.2) % Absolute Granulocytes (1.56-6.13) x10^3/uL Basophils # (0.01-0.08) x10^3/uL PT (9.4-12.5) SECONDS INR (0.8-3.0) Sodium 127 L (135-145) mmol/L Potassium (3.5-5.1) mmol/L Chloride (98-107) mmol/L Carbon Dioxide (22-30) mmol/L Anion Gap (5-15) MEQ/L BUN (7-17) mg/dL Creatinine (0.52-1.04) mg/dL Estimated GFR ML/MIN Glucose (74-106) mg/dL Calcium (8.4-10.2) mg/dL Total Bilirubin (0.2-1.3) mg/dL AST (14-36) U/L ALT (0-35) U/L Alkaline Phosphatase (38-126) U/L Troponin I < 0.012 < 0.012 (0.000-0.033) ng/mL NT-Pro-B Natriuret Pep (<300) pg/mL Serum Total Protein (6.3-8.2) g/dL Albumin (3.5-5.0) g/dL Procalcitonin (0.030-0.080) ng/mL TSH 3rd Generation (0.470-4.680) mIU/L Urine Color (Yellow) Urine Appearance (Clear) Urine pH (4.6-8.0) Ur Specific [place] (1.005-1.030) Urine Protein (Negative) Urine Glucose (UA) (Negative) mg/dL Urine Ketones (Negative) Urine Blood (Negative) Urine Nitrite (Negative) Urine Bilirubin (Negative) Urine Urobilinogen (0.2) mg/dL Ur Leukocyte Esterase (Negative) U Hyaline Cast (Auto) (0-2) /LPF Urine Microscopic RBC (0-5) /HPF Urine Microscopic WBC (0-5) /HPF Ur Epithelial Cells (None Seen) /HPF Urine Bacteria (None Seen) /HPF Urine Culture Reflexed (NO) 05/01/25 05/01/25 05/01/25 Range/Units 05:00 05:00 05:00 WBC 8.5 (3.98-10.04) x10^3/uL RBC 3.57 L (3.93-5.22) x10^6/uL Hgb 11.6 (11.2-15.7) g/dL Hct 34.3 (34.1-44.9) % MCV 96.1 H (79.4-94.8) fL MCH 32.5 H (25.6-32.2) pg MCHC 33.8 (32.2-35.5) g/dL RDW 13.5 (11.7-14.4) % Plt Count 320 (182-369) x10^3/uL MPV 9.3 L (9.4-12.3) fL Gran % (34.0-71.1) % Immature Gran % (Auto) (0.001-0.429) % Nucleat RBC Rel Count (0.00-0.2) % Eos # (Auto) (0.04-0.36) x10^3/uL Immature Gran # (Auto) (0.001-0.031) x10^3u/L Absolute Lymphs (auto) (1.18-3.74) x10^3/uL Absolute Monos (auto) (0.24-0.86) x10^3/uL Absolute Nucleated RBC (0.00-0.012) x10^3u/L Lymphocytes % (19.3-51.7) % Monocytes % (4.7-12.5) % Eosinophils % (0.7-5.8) % Basophils % (0.1-1.2) % Absolute Granulocytes (1.56-6.13) x10^3/uL Basophils # (0.01-0.08) x10^3/uL PT 19.5 H (9.4-12.5) SECONDS INR 1.86 (0.8-3.0) Sodium 130 L (135-145) mmol/L Potassium 4.1 (3.5-5.1) mmol/L Chloride 98 (98-107) mmol/L Carbon Dioxide 24 (22-30) mmol/L Anion Gap 12.5 (5-15) MEQ/L BUN 29 H (7-17) mg/dL Creatinine 1.36 H (0.52-1.04) mg/dL Estimated GFR 37.2 ML/MIN Glucose 84 (74-106) mg/dL Calcium 9.1 (8.4-10.2) mg/dL Total Bilirubin 0.50 (0.2-1.3) mg/dL AST 34 (14-36) U/L ALT 16 (0-35) U/L Alkaline Phosphatase 65 (38-126) U/L Troponin I (0.000-0.033) ng/mL NT-Pro-B Natriuret Pep (<300) pg/mL Serum Total Protein 6.7 (6.3-8.2) g/dL Albumin 3.7 (3.5-5.0) g/dL Procalcitonin (0.030-0.080) ng/mL TSH 3rd Generation (0.470-4.680) mIU/L Urine Color (Yellow) Urine Appearance (Clear) Urine pH (4.6-8.0) Ur Specific [place] (1.005-1.030) Urine Protein (Negative) Urine Glucose (UA) (Negative) mg/dL Urine Ketones (Negative) Urine Blood (Negative) Urine Nitrite (Negative) Urine Bilirubin (Negative) Urine Urobilinogen (0.2) mg/dL Ur Leukocyte Esterase (Negative) U Hyaline Cast (Auto) (0-2) /LPF Urine Microscopic RBC (0-5) /HPF Urine Microscopic WBC (0-5) /HPF Ur Epithelial Cells (None Seen) /HPF Urine Bacteria (None Seen) /HPF Urine Culture Reflexed (NO) 05/01/25 Range/Units 05:00 WBC (3.98-10.04) x10^3/uL RBC (3.93-5.22) x10^6/uL Hgb (11.2-15.7) g/dL Hct (34.1-44.9) % MCV (79.4-94.8) fL MCH (25.6-32.2) pg MCHC (32.2-35.5) g/dL RDW (11.7-14.4) % Plt Count (182-369) x10^3/uL MPV (9.4-12.3) fL Gran % (34.0-71.1) % Immature Gran % (Auto) (0.001-0.429) % Nucleat RBC Rel Count (0.00-0.2) % Eos # (Auto) (0.04-0.36) x10^3/uL Immature Gran # (Auto) (0.001-0.031) x10^3u/L Absolute Lymphs (auto) (1.18-3.74) x10^3/uL Absolute Monos (auto) (0.24-0.86) x10^3/uL Absolute Nucleated RBC (0.00-0.012) x10^3u/L Lymphocytes % (19.3-51.7) % Monocytes % (4.7-12.5) % Eosinophils % (0.7-5.8) % Basophils % (0.1-1.2) % Absolute Granulocytes (1.56-6.13) x10^3/uL Basophils # (0.01-0.08) x10^3/uL PT (9.4-12.5) SECONDS INR (0.8-3.0) Sodium (135-145) mmol/L Potassium (3.5-5.1) mmol/L Chloride (98-107) mmol/L Carbon Dioxide (22-30) mmol/L Anion Gap (5-15) MEQ/L BUN (7-17) mg/dL Creatinine (0.52-1.04) mg/dL Estimated GFR ML/MIN Glucose (74-106) mg/dL Calcium (8.4-10.2) mg/dL Total Bilirubin (0.2-1.3) mg/dL AST (14-36) U/L ALT (0-35) U/L Alkaline Phosphatase (38-126) U/L Troponin I (0.000-0.033) ng/mL NT-Pro-B Natriuret Pep (<300) pg/mL Serum Total Protein (6.3-8.2) g/dL Albumin (3.5-5.0) g/dL Procalcitonin (0.030-0.080) ng/mL TSH 3rd Generation 2.502 (0.470-4.680) mIU/L Urine Color (Yellow) Urine Appearance (Clear) Urine pH (4.6-8.0) Ur Specific [place] (1.005-1.030) Urine Protein (Negative) Urine Glucose (UA) (Negative) mg/dL Urine Ketones (Negative) Urine Blood (Negative) Urine Nitrite (Negative) Urine Bilirubin (Negative) Urine Urobilinogen (0.2) mg/dL Ur Leukocyte Esterase (Negative) U Hyaline Cast (Auto) (0-2) /LPF Urine Microscopic RBC (0-5) /HPF Urine Microscopic WBC (0-5) /HPF Ur Epithelial Cells (None Seen) /HPF Urine Bacteria (None Seen) /HPF Urine Culture Reflexed (NO) - Radiology Exams Ordered Rad Exams-Entire Visit: Radiology Procedures Category Date Time Status CHEST 1 VIEW (PORTABLE) Stat Exams 04/30/25 14:43 Completed VENOUS UNILAT/LIMITED EXTREMIT [US] Routine Exams 05/01/25 10:01 Ordered - Procedures and Test Procedures and Tests throughout Hospitalization: Therapy Orders & Screens 04/30/25 17:25 Respiratory Therapy Consult ONCE Comment: Reason For Exam: Diagnosis: Chest pain, acute coronary syndrome Discharge Exam General Appearance: no apparent distress, alert, obese Neurologic Exam: alert, oriented x 3, cooperative, normal mood/affect, nml cerebellar function, sensation nml, No motor deficits Eye Exam: PERRL, EOMI, eyes nml inspection Ears, Nose, Throat Exam: normal ENT inspection, pharynx normal, moist mucous membranes Neck Exam: normal inspection, non-tender, supple, full range of motion Respiratory Exam: normal breath sounds, lungs clear, No respiratory distress Cardiovascular Exam: regular rate/rhythm, normal heart sounds Gastrointestinal/Abdomen Exam: soft, No tenderness, No mass Pelvic Exam: deferred Rectal Exam: deferred Back Exam: normal inspection, normal range of motion, No CVA tenderness, No vertebral tenderness Extremity Exam: normal inspection, normal range of motion, tenderness (LLE- heamtoma) Skin Exam: normal color, warm, dry, other (circular lesion with scab on LLE inner calf) Final Diagnosis/Problem List - Final Discharge Diagnosis/Problem (1) Chest pain Current Visit: Yes Status: Acute Code(s): R07.9 - CHEST PAIN, UNSPECIFIED (2) Diarrhea Current Visit: Yes Status: Acute Code(s): R19.7 - DIARRHEA, UNSPECIFIED (3) Hyponatremia Current Visit: Yes Status: Acute Code(s): E87.1 - HYPO-OSMOLALITY AND HYPONATREMIA (4) HTN (hypertension) Current Visit: Yes Status: Chronic Code(s): I10 - ESSENTIAL (PRIMARY) HYPERTENSION (5) Anxiety Current Visit: Yes Status: Chronic Code(s): F41.9 - ANXIETY DISORDER, UNSPECIFIED (6) History of atrial fibrillation Current Visit: Yes Status: Chronic Code(s): Z86.79 - PERSONAL HISTORY OF OTHER DISEASES OF THE CIRCULATORY SYSTEM (7) CKD (chronic kidney disease) Current Visit: Yes Status: Chronic Assessment & Plan: (1) Chest pain Current Visit: Yes Status: Acute Qualifiers: Assessment & Plan: - Tele - EKG - Trend Trops, X1 negative - CXR: Portable chest less inflated with new mild bibasilar infiltrates versus atelectasis. Heart not enlarged. Bony thorax intact again with osteopenia, degenerative changes, scoliosis, and numerous left neck/left shoulder metallic shrapnel. - Procal- 0.049 - CBC, CMP reviewed - BNP 1150 - RA 98% - TSH 2.502 05/01 - Trop x3 negative - Denies CP - CBC, CMP reviewed Code(s): R07.9 - CHEST PAIN, UNSPECIFIED (2) Diarrhea Current Visit: Yes Status: Acute Assessment & Plan: - Pt reports ongoing for 3 weeks after taking taking an antibiotic for wound on LLE - Stool sample pending for further eval - Probiotics - CT abd/pelvis 04/15 Impression: Again chronic findings including atelectasis/scarring, sigmoid diverticulosis, bilateral renal cysts, vaginal cuff calcified fibroid, arteriosclerotic disease, and chronic bony findings. No new/acute findings on this noncontrast exam. 05/01 - None overnight- stool sample pending Code(s): R19.7 - DIARRHEA, UNSPECIFIED (3) Hyponatremia Current Visit: Yes Status: Acute Assessment & Plan: - Na+ 127- trend- Q6 labs - NS @ 50 ml/hr - HCTZ held - 2:2 diarrhea and HCTZ? 05/01 - Na+ 130- mild - Continue IVF Code(s): E87.1 - HYPO-OSMOLALITY AND HYPONATREMIA (4) HTN (hypertension) Current Visit: Yes Status: Chronic Qualifiers: Hypertension type: secondary to other renal disorders Qualified Code(s): I 15.1 - Hypertension secondary to other renal disorders Assessment & Plan: - BP elevated - Continue home med - Trend BP - Tele 05/01 - BP stable today Code(s): I10 - ESSENTIAL (PRIMARY) HYPERTENSION (5) Anxiety Current Visit: Yes Status: Chronic Assessment & Plan: - Chronic continue home med Code(s): F41.9 - ANXIETY DISORDER, UNSPECIFIED (6) History of atrial fibrillation Current Visit: Yes Status: Chronic Assessment & Plan: - Continue coumadin- pharmacy to dose - Pt reports recent Echo and stress test. -Echo 12/07/24 EF 75% IMPRESSION: 1) MILD CONCENTRIC LEFT VENTRICULAR HYPERTROPHY. 2) NORMAL LEFT VENTRICULAR SYSTOLIC FUNCTION. 3) MILD RIGHT VENTRICULAR ENLARGEMENT. 4) CALCIFIC AORTIC SCLEROSIS WITH EVIDENCE OF MILD AORTIC STENOSIS. 5) MILD AORTIC INSUFFICIENCY AND MILD TRICUSPID INSUFFICIENCY. 6) MILD MITRAL REGURGITATION AND MILD TRICUSPID REGURGITATION. Code(s): Z86.79 - PERSONAL HISTORY OF OTHER DISEASES OF THE CIRCULATORY SYSTEM (7) CKD (chronic kidney disease) Current Visit: Yes Status: Chronic Assessment & Plan: - CMP reviewed - At baseline renal function - Will need OP F/U with nephrology Code(s): N18.9 - CHRONIC KIDNEY DISEASE, UNSPECIFIED Code(s): N18.9 - CHRONIC KIDNEY DISEASE, UNSPECIFIED (8) Wound hematoma Current Visit: Yes Status: Acute Assessment & Plan: - LLE - VD LLE- Impression: Left leg negative for DVT. Incidental subcutaneous calf hematoma. - podiatry consult Code(s): FUF3306 - - Discharge Discharge Date: 05/01/25 Disposition: Home, Self-Care Condition: Stable Prescriptions: New Levofloxacin [Levofloxacin 500 MG Tablet] 500 mg PO QAM 10 Days #10 tablet Continue Vit C/E/Cuperic/Zinc/Lutein [Preservision Lutein Softgel] 1 each PO BID [place]-3 Fatty Acids/Fish Oil [Fish Oil 1,000 mg Capsule] 1,000 mg PO DAILY Metoprolol Succinate 100 mg [Toprol Xl 100 MG] 100 mg PO DAILY lisinopriL [Lisinopril] 20 mg PO HS Garlic 100 mg PO DAILY Dicyclomine HCl 20 mg [Bentyl 20 mg] 20 mg PO BIDPRN PRN PRN Reason: Diverticulitis Ubidecarenone [Co Q-10] 100 mg PO QAM Hepvana 1 applic TP Q12H PRN PRN PRN Reason: knee pain Multivitamin 1 tab PO DAILY Acetaminophen [Tylenol Arthritis] 650 mg PO TIDPRN PRN PRN Reason: arthritis Spironolactone 25 mg [Aldactone 25 MG] 25 mg PO DAILY Lisinopril/Hydrochlorothiazide [Lisinopril-Hctz 20-12.5 mg Tab] 1 each PO DAILY Alprazolam [Xanax] 0.5 mg PO TIDPRN PRN PRN Reason: Anxiety Ranolazine 500 MG [Ranexa 500 MG] 500 mg PO BID Pramipexole Di-HCl [Pramipexole Dihydrochloride] 1 mg PO TID Warfarin Sodium 2 mg PO SUTUWETHSA Warfarin Sodium 1 mg PO MOFR Tramadol HCl 50 mg [Ultram 50 mg] 50 mg PO TIDPRN PRN PRN Reason: Pain Instructions: Chest pain - Discharge instructions Additional Instructions: Your records are being sent to [facility] for Nephrology follow-up. Their office will call you once your records have been reviewed to schedule and appointment. * You can buy probiotics OTC for your diarrhea. Follow up with: LASHAE BOGGS DPM [ACTIVE STAFF, PODIATRY] - 05/08/25 1:00 pm THEODORE MANZANO [CONSULTING PHYSICIAN, CARDIOLOGY] - 05/09/25 9:30 am Referral Note: With FLACO Johnson at [facility]. SHAWNA CRUZ MD [Primary Care Provider, FAMILY PRACTICE] - 05/03/25 1:15 pm
--- NOTE | 2025-05-01 11:29 | XRAY ---
Indication: Hematoma. Two-dimensional sonogram and color Doppler imaging major venous vessels left leg performed. Comparison: None No thrombus seen in the examined deep venous vessels left leg including greater saphenous vein. Veins demonstrate normal compressibility. Venous waveforms are normal with and without augmentation. Targeted ultrasound over distal medial calf demonstrates subcutaneous focus of heterogeneous hematoma measuring at least 10 cm in length and 2.5 cm in thickness. Impression: Left leg negative for DVT. Incidental subcutaneous calf hematoma.
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
[2025-05-01 16:25] VITALS: BP 158/74; PULSE 58; TEMP 97.7; O2SAT 95
[2025-05-03] MEDS ORDERED: COUMADIN PO SCH (17:33)
== END 2025-05-01 17:47 | disposition home or self-care (01) ==
LOC: ED 14:29 → MED SURG 16:50
PROVIDERS: ADMIT Internal Medicine; ATTEND Internal Medicine
DX: R07.9 Chest pain, unspecified (principal); I48.91 Unspecified atrial fibrillation; R19.7 Diarrhea, unspecified; E87.1 Hypo-osmolality and hyponatremia; I12.9 Hypertensive chronic kidney disease with stage 1 through stage 4 chronic kidney disease, or unspecified chronic kidney disease; N18.9 Chronic kidney disease, unspecified; F41.9 Anxiety disorder, unspecified; E78.5 Hyperlipidemia, unspecified; M79.605 Pain in left leg; S80.12XA Contusion of left lower leg, initial encounter; S91.302A Unspecified open wound, left foot, initial encounter; Z79.899 Other long term (current) drug therapy; Z79.01 Long term (current) use of anticoagulants
CPT/HCPCS: 10140; 29580; 36415; 71045; 80053; 81001; 83880; 84145; 84295; 84443; 84484; 85025; 85027; 85610; 93005; 93041; 93268; 93971; 94760; 94762; 99223; 99285; G0378